=== PATIENT | female | born 1955 | race Asian ===

== ENCOUNTER 2024-12-10 14:05 | Emergency (ER) | payer MEDICAID, OTHER ==
[~2024-12-10] VITALS: Ht 165.1 cm; Wt 63.0 kg
[~2024-12-10 14:05] MED LIST: ATEN-42 PO; ATOR20TA65 PO; HYDR12.54 PO
[2024-12-10 14:16] VITALS: TEMP 36.7; O2SAT 99
[2024-12-10 18:56] LABS: BASOPHILS % 0.8 % (0.0-2.0); EOSINOPHILS % 1.4 % (0.0-5.0); HEMATOCRIT. 36.5 % (36.0-48.0); HEMOGLOBIN. 11.2 g/dL (12.0-16.0); LYMPHOCYTES % 31.2 % (20.0-50.0); MEAN PLATELET VOLUME 8.3 fl (7.4-10.4); MONOCYTES % 6.8 % (2.0-8.0); NEUTROPHILS % 59.8 % (40.0-76.0); PLATELET 249 x1000/uL (130-400); RED BLOOD CELL COUNT 5.00 mill/uL (4.2-5.4); RED CELL DISTRIBUTION WIDTH 13.8 % (11.6-14.6)
[2024-12-10 19:10] LABS: INR 0.9
[2024-12-10 19:14] LABS: CREATININE 0.5 mg/dL (0.6-1.0)
[2024-12-10 19:15] LABS: TROPONIN I HIGH SENSITIVITY < 4 ng/L (3.0-34); UREA NITROGEN BLOOD 8 mg/dL (9-23)
[2024-12-10 19:16] LABS: ASPARTATE AMINOTRANSFERASE 17 IU/L (<34); BILIRUBIN DIRECT < 0.1 mg/dL (<=3.0)
[2024-12-10 19:17] LABS: BILIRUBIN TOTAL 0.3 mg/dL (0.1-1.0); PROTEIN TOTAL 7.2 g/dL (6.0-8.3)
[2024-12-10 22:32] VITALS: BP 125/76; PULSE 66; RESP 15; O2SAT 100
== END 2024-12-10 22:33 | disposition home or self-care (01) ==
LOC: ER 14:05
DX: R79.9 Abnormal finding of blood chemistry, unspecified (principal); B15.9 Hepatitis A without hepatic coma; E11.9 Type 2 diabetes mellitus without complications; E78.00 Pure hypercholesterolemia, unspecified; I10 Essential (primary) hypertension; Z79.899 Other long term (current) drug therapy
CPT/HCPCS: 36415; 80048; 80076; 83735; 84484; 85025; 99283